=== PATIENT | female | born 1980 | race Caucasian/White ===

== ENCOUNTER 2019-02-18 16:12 | Emergency (ER) | payer SELFPAY ==
[2019-02-18 16:13] VITALS: BP 141/80; PULSE 81; RESP 16; TEMP 36.6; O2SAT 95; BMI 24.1
--- NOTE | 2019-02-18 16:31 | EKG12_ITS ---
Test Reason : DIZZINESS Blood Pressure : / mmHG Vent. Rate : 065 BPM Atrial Rate : 065 BPM P-R Int : 134 ms QRS Dur : 076 ms QT Int : 380 ms P-R-T Axes : 071 055 042 degrees QTc Int : 395 ms Normal sinus rhythm Normal ECG Confirmed by CORINNE JIMENEZ ([id number]), editor department LATISHA GAMINO ([id number]) on 02/24/2019 9:37:35 AM Referred By: MR Confirmed By:CORINNE JIMENEZ
--- NOTE | 2019-02-18 16:31 | RAD_ITS ---
STUDY: X-RAY CHEST REASON FOR EXAM: Female, 38 years old. Dizziness and cough. History of genetic mutation clotting disorder. TECHNIQUE: PA and lateral views of the chest. COMPARISON: None. FINDINGS: The lungs are clear and expanded. There is no demonstrated pleural abnormality. Normal size heart. Normal mediastinum and christiane. Normal visualized pulmonary arteries. Normal visualized aortic arch and descending thoracic aorta. Normal visualized thoracic spine. Normal visualized ribs, clavicles, and shoulders. There is no demonstrated abnormality of the visualized soft tissue structures of the upper abdomen. RAD/Chest PA and Lateral IMPRESSION: Normal x-ray examination of the chest. Electronically Signed: Yumiko Zhong MD at 17:30 EDT , Service support ,
--- NOTE | 2019-02-18 16:31 | CT_ITS ---
STUDY: CT BRAIN WITHOUT CONTRAST REASON FOR EXAM: Female, 38 years old. Dizziness and near syncope. RADIATION DOSAGE (If Supplied By Facility): CTDIvol = ( 60.81 ) mGy, DLP = ( 998.67 ) mGycm TECHNIQUE: Transaxial CT imaging of the brain was performed without administration of intravenous contrast material. Individualized dose optimization techniques were used for this CT. COMPARISON: No relevant priors. FINDINGS: Normal soft tissue structures. Normal calvarium. Normal size ventricles and extra-axial spaces for the patient's age. Normal white matter tracts of the cerebral hemispheres. Normal basal ganglia and thalami. Normal brainstem. Normal cerebellum. There is no intracranial hemorrhage. There are no findings of an acute ischemic infarction. Normal visualized paranasal sinuses. CT/Brain/Head without Contrast IMPRESSION: Normal unenhanced CT scan of the brain. Electronically Signed: Yumiko Zhong MD at 17:30 EDT , Service support ,
--- NOTE | 2019-02-18 16:37 | NURSING ---
NO OLD EKGS
--- NOTE | 2019-02-18 16:45 | ED.VIS.GEN ---
History of Present Illness Chief Complaint: Dizziness Narrative: Patient presenting secondary to an episode of dizziness. Patient reports that she was driving in her car today getting ready to drop kids off at school, and she had a sudden unprovoked onset of lightheadedness. She reports that lasted about 60 seconds and she felt as if she was going to pass out. She felt profoundly lightheaded and had difficulty with focusing her eyes. She denies that at that time she was having any issues with chest pain shortness of breath palpitations. She denies that she was having any sort of lateralizing numbness or weakness. Since then this is spontaneously resolved, and she reports that she has a mild generalized aching type headache. No exacerbating relieving factors. She has no prior history of this in the past. She does take aspirin secondary to a history of MTHFR. She is on no sorts of hormones. Most recent long travel was the beginning of December to [place]. Review of systems otherwise negative. Past Medical History - Allergies and Home Meds Allergies/Adverse Reactions: Allergies amoxicillin Allergy (Verified 02/18/19 16:59) Rash Penicillins Allergy (Verified 02/18/19 16:59) Rash Past Medical History: - - MTHFR Review of Systems All systems negative except as indicated General: Denies: Fever, Malaise Eyes: Denies: Visual changes - bilaterally Cardiovascular: Denies: Chest pain, Palpitations Respiratory: Denies: Dyspnea Neurological: Reports: Headache. Denies: Weakness, Parasthesia, Numbness Physical Exam Vital Signs/Narrative: Vital Signs Temp Pulse Resp BP Pulse Ox 02/18/19 16:13 97.8 F 81 16 141/80 H 95 Inital Vital Signs reviewed: Yes General: Well nourished, Well developed, No Acute Distress Head: Normocephalic, Atraumatic Eyes: Perrl, EOMI ENT: Moist mucous membranes, No rhinorrhea Neck: Supple, Nontender Cardiovascular: Regular rate, Regular rhythm, No murmurs Respiratory: No distress, CTA bilaterally, Chest nontender Abdomen: Soft, Nontender, Nondistended, Normal bowel sounds Back: Nontender, Normal Inspection Extremities: Nontender, No edema Skin: Normal color, No rash Neurological: Alert, Oriented x3, Cranial nerves II-XII grossly intact, Normal Strength, Normal Sensation Psychological: Normal affect, Normal Mood Diagnostic/Tx/Re-eval Chest X-Ray - ED: - - PA and lateral chest x-ray by my personal interpretation as well as radiology is found to be negative for any acute process - EKG Initial EKG Interpretation: - - Sinus rhythm at [address] segments normal T waves no evidence of WPW or Brugada morphology. Normal NC and QTc intervals. - Medical Decision Making Patient presented secondary to a near syncopal episode. EKG was obtained and was found to be normal. CBC and chemistry were unremarkable. Troponin negative. D-dimer was obtained due to the patient's history of MTHFR and was negative. Chest x-ray negative. CT brain was obtained due to the patient's concomitant headache associated with this and was negative. Patient is low risk for subarachnoid hemorrhage. Patient is low risk for dangerous causes of syncope per the [place] syncope rules. I do not believe that she requires further work-up or admission. She was given reassurance. She was given signs and symptoms which to return, was recommended follow-up with primary care, and was discharged. ED Disposition - Plan for ED Patient: Disposition: Home or Assisted Living Diagnosis: Near syncope Instructions: NEAR SYNCOPE, Unknown Referrals: Kiran Singh III, MD [Primary Care Provider] - 1-2 Weeks
[2019-02-18 16:58] VITALS: BP 123/83; PULSE 76; RESP 15; O2SAT 97
[2019-02-18 17:00] LABS: Absolute Lymphocyte Count 1.88 X10^3/uL (0.83-4.51); Absolute Neutrophil Count 2.5 X10^3/uL (2.0-7.7); Basophil# 0.02 X10^3/uL; Basophil% 0.4 % (0-1); Eosinophil# 0.13 X10^3/uL; Eosinophils% 2.7 % (0-5); Hematocrit 40.1 % (37-47); Hemoglobin 13.2 g/dL (12.0-15.0); Lymphocyte # 1.88 X10^3/ul (4.0); Lymphocyte % 39.2 % (19-41); Mean Corp Hgb Conc 32.9 g/dL (32-36); Mean Corpuscular Hgb 30.4 pg (27.0-32.0); Mean Corpuscular Volume 92.4 fL (81-99); Mean Platelet Vol. 9.3 fl (6.2-12.0); Monocyte% 6.3 % (0-10); NRBC Flagged by Analyzer 0 % (0-5); Neutrophil # 2.45 X10^3/uL (2.7-7.7); Neutrophil % 51.2 % (47-70); Platelet Count 226 K/mm3 (150-450); RBC Distribution Width CV 12.8 % (11.6-14.6); RBC Distribution Width SD 43.2 fl (35.1-43.9); Red Blood Count 4.34 M/mm3 (4.2-5.4); White Blood Count 4.8 K/mm3 (4.4-11.0)
[2019-02-18 17:10] LABS: ALB/GLOB Ratio 1.2 RATIO (0.9-2.4); AST(SGOT) 16 U/L (15-37); Alanine Aminotransfer ALT/SGPT 27 U/L (13-56); Albumin, Serum 4.3 g/dL (3.2-5.0); Alkaline Phosphatase 70 U/L (45-117); Anion Gap 5 (5-15); BUN 17 mg/dL (7-18); BUN/Creat Ratio 21.5 RATIO (10-20); Calcium,Total 9.4 mg/dL (8.5-10.1); Chloride 109 mmol/L (98-107); Creatinine, Serum 0.79 mg/dL (0.55-1.02); EST Glomerular Filtration Rate 86 mL/min (>60); Est Glom Filt Rate - Afr Amer 104 mL/min (>60); Estimated Creatinine Clearance 86.03 ml/min; Globulin 3.7 g/dL (2.2-4.2); Glucose 88 mg/dL (74-106); Potassium 3.8 mmol/L (3.5-5.1); Sodium Level 143 mmol/L (136-145)
[2019-02-18 17:25] LABS: Internal QC Validated? YES +Cl - CLEAR BKGD; Pregnancy, Urine Negative Negative
[2019-02-18 17:36] LABS: D-Dimer Quantitative (DVT/PE) < 0.27 FEU/ug/m (0.27-0.49)
[2019-02-18 18:21] VITALS: BP 120/73; PULSE 74; RESP 16; O2SAT 96
== END 2019-02-18 18:22 | disposition home or self-care (01) ==
PROVIDERS: Emergency Provider Emergency Medicine; Family Provider Family Medicine; PCP Family Medicine
DX: R55 Syncope and collapse (principal); R51 Headache; E72.12 Methylenetetrahydrofolate reductase deficiency; Z79.82 Long term (current) use of aspirin
CPT/HCPCS: 70450; 71046; 80053; 81025; 84484; 85025; 85379; 93005; 99284; A4216